=== PATIENT | male | born 1975 | race Caucasian/White ===

== ENCOUNTER → 2021-02-21 | Day surgery (SDC) | payer OTHER ==
[~2021-02-21] VITALS: Ht 177.8 cm; Wt 147.4 kg
[~2021-02-21] MED LIST: NORCO 5-325 TA1 EACH PO; ONDANSETRON ODT8 MG PO; TESTOSTERO200 MG/1 M IM; VITAMIN D21250 MCG PO
[2021-02-21 08:43] LABS: ALBUMIN 3.8 g/dL (3.4-5.0); BILIRUBIN - TOTAL 0.7 mg/dL (0.2-1.0); BUN/CREAT RATIO (CALC) 11.8 RATIO; CREATININE 0.85 mg/dL (0.67-1.17); GLOBULIN (CALCULATION) 3.5 g/dL; TOTAL PROTEIN 7.3 g/dL (6.4-8.2)
[2021-02-21 08:47] LABS: HCT 57.8 % (42.0-52.0); HGB 19.8 g/dl (13.2-18.0); MCH 29.9 pg (25.0-31.0); MCHC 34.3 g/dL (32.0-36.0); MCV 87.2 fL (78.0-100.0); MPV 9.7 fL (6.0-9.5); RDW 14.6 % (11.5-14.0); WBC 7.8 K/uL (4.0-10.5)
[2021-02-21 08:48] LABS: RBC 6.63 M/uL (4.70-6.00)
== END | disposition home or self-care (01) ==
LOC: FAS 07:06
PROVIDERS: Surgery
DX: K42.0 Umbilical hernia with obstruction, without gangrene (principal); L03.317 Cellulitis of buttock; Z87.891 Personal history of nicotine dependence; Z79.899 Other long term (current) drug therapy
CPT/HCPCS: 36415; 80053; 93005; J1885; J2250; J2405; J2704; J3010; J7120